=== PATIENT | female | born 1955 | race Hispanic/Latino ===

== ENCOUNTER 2021-02-05 14:02 | Emergency (ER) | payer OTHER ==
[~2021-02-05] VITALS: Ht 160 cm; Wt 83.9 kg
[2021-02-05 14:50] VITALS: BP 161/76
[2021-02-05 15:40] LABS: BASOPHILS % (AUTO) 0.4 % (0.0-5.0); EOSINOPHILS % (AUTO) 1.6 % (0.0-8.0); HEMATOCRIT 34.3 % (36-48); LYMPHOCYTES % (AUTO) 18.6 % (21.0-51.0); MEAN CORPUSCULAR HEMOGLOBIN 26.7 pg (27.0-33.0); MEAN CORPUSCULAR HGB CONC 30.9 g/dL (32.0-36.0); MEAN CORPUSCULAR VOLUME 86.4 fL (79-99); NEUTROPHILS % (AUTO) 74.1 % (40.0-77.0); PLATELET COUNT (AUTO) 301 K/uL (130-400); RED BLOOD CELL COUNT(AUTO) 3.97 MIL/uL (4.00-5.50); RED CELL DISTRIBUTION WIDTH 15.3 % (11.0-15.5); WHITE BLOOD COUNT (AUTO) 10.1 K/uL (4.8-10.8)
[2021-02-05 15:57] LABS: CREATININE 3.6 mg/dL (0.5-1.5); POTASSIUM 4.8 mmol/L (3.5-5.1)
[2021-02-05 15:58] LABS: B-TYPE NATRIURETIC PEPTIDE 366 pg/mL (0-100)
[2021-02-05 16:01] LABS: ALBUMIN 3.2 g/dL (3.5-5.0); BILIRUBIN,TOTAL 0.3 mg/dL (0.2-1.0)
[2021-02-05 16:25] LABS: APPEARANCE,URINE Clear (CLEAR); BILIRUBIN,URINE Negative (NEGATIVE); COLOR,URINE Yellow (YELLOW); GLUCOSE, URINE (UA) Negative (NEGATIVE); KETONES,URINE Negative (NEGATIVE); LEUKOCYTE ESTERASE ,URINE Negative (NEGATIVE); NITRATE,URINE Negative (NEGATIVE); OCCULT BLOOD,URINE Trace (NEGATIVE); PROTEIN,URINE 300 mg/dL (NEGATIVE); UROBILINOGEN,URINE 0.2 mg/dL (0.2-1.0)
[2021-02-05 16:32] LABS: RBC,URINE 0-1 /HPF (0-1); WBC,URINE 0-1 /HPF (0-1)
[2021-02-05 16:33] LABS: BACTERIA,URINE Rare /HPF (None Seen); SQUAMOUS EPITHELIAL CELL,UR Few /HPF (0-2)
[2021-02-06] MEDS ORDERED: CARV25TA PO (06:53)
[2021-02-06] MEDS ORDERED: NITR0.3T11 SL (06:53)
[2021-02-06] MEDS ORDERED: LOSARTAN PO (06:53)
[2021-02-06] MEDS ORDERED: LEVO50CA4 PO (06:53)
[2021-02-06] MEDS ORDERED: LEVO50TA11 PO (14:36)
[2021-02-06] MEDS ORDERED: LOSA25TA41 PO (14:36)
[2021-02-06] MEDS ORDERED: NITR0.4T50 SL (14:36)
[2021-02-06] MEDS ORDERED: FOLI0.8T2 PO (14:36)
[2021-02-06] MEDS ORDERED: ALBU1.252 IH (14:38)
== END 2021-02-05 17:16 | disposition left against medical advice (07) ==
LOC: EDH 14:02
DX: R07.89 Other chest pain (principal); R94.31 Abnormal electrocardiogram [ECG] [EKG]; I10 Essential (primary) hypertension; E78.00 Pure hypercholesterolemia, unspecified; Z98.890 Other specified postprocedural states; Z88.6 Allergy status to analgesic agent; Z88.8 Allergy status to other drugs, medicaments and biological substances
CPT/HCPCS: 36415; 71045; 80053; 81001; 82550; 83880; 84484; 85025; 93005

== ENCOUNTER 2021-02-06 05:56 | Inpatient (IN) | payer OTHER ==
[2021-02-06] VITALS (8 sets, daily range): BP systolic 134–210; BP diastolic 67–98
[~2021-02-06] VITALS: Ht 160 cm; Wt 81.6 kg
[2021-02-06 06:25] LABS: BASOPHILS % (AUTO) 0.5 % (0.0-5.0); EOSINOPHILS % (AUTO) 2.1 % (0.0-8.0); HEMATOCRIT 35.5 % (36-48); MEAN CORPUSCULAR HGB CONC 29.9 g/dL (32.0-36.0); MEAN CORPUSCULAR VOLUME 87.2 fL (79-99); MONOCYTES % (AUTO) 5.7 % (3.0-13.0); NEUTROPHILS % (AUTO) 70.3 % (40.0-77.0); PLATELET COUNT (AUTO) 284 K/uL (130-400); RED BLOOD CELL COUNT(AUTO) 4.07 MIL/uL (4.00-5.50); RED CELL DISTRIBUTION WIDTH 15.5 % (11.0-15.5); WHITE BLOOD COUNT (AUTO) 10.2 K/uL (4.8-10.8)
[2021-02-06 06:40] LABS: CREATININE 3.5 mg/dL (0.5-1.5); POTASSIUM 4.1 mmol/L (3.5-5.1)
[2021-02-06] MEDS ORDERED: LOSARTAN PO (06:53)
[2021-02-06] MEDS ORDERED: LEVO50CA4 PO (06:53)
[2021-02-06] MEDS ORDERED: CARV25TA PO (06:53)
[2021-02-06] MEDS ORDERED: NITR0.3T11 SL (06:53)
[2021-02-06] MEDS ORDERED: NITROGLYCERIN 1GM OINT 1 INCH/1GM TD SCH (07:00)
[2021-02-06 07:02] LABS: ALBUMIN 3.2 g/dL (3.5-5.0); B-TYPE NATRIURETIC PEPTIDE 277 pg/mL (0-100); BILIRUBIN,TOTAL 0.3 mg/dL (0.2-1.0); TOTAL PROTEIN, SERUM 8.2 g/dL (6.0-8.3)
[2021-02-06] MEDS ORDERED: NITROGLYCERIN 0.4 MG SL TAB SL PRN ×2 (07:30→11:30)
[2021-02-06] MEDS: METOPROLOL TARTRATE 25 MG TAB PO SCH ×2 (10:21→20:10)
[2021-02-06] MEDS ORDERED: ONDANSETRON 4MG INJ IV PRN (10:30)
[2021-02-06] MEDS: FAMOTIDINE 20MG VIAL IV SCH (11:39)
[2021-02-06] MEDS ORDERED: ASPIRIN 81MG CHEW TAB PO SCH (13:00)
[2021-02-06] MEDS: NITROGLYCERIN 1GM OINT 1 INCH/1GM TD SCH ×2 (13:02→20:10)
[2021-02-06] MEDS ORDERED: LABETALOL 20MG VIAL IV PRN (13:30)
[2021-02-06] MEDS ORDERED: FOLI0.8T2 PO (14:36)
[2021-02-06] MEDS ORDERED: NITR0.4T50 SL (14:36)
[2021-02-06] MEDS ORDERED: LEVO50TA11 PO (14:36)
[2021-02-06] MEDS ORDERED: LOSA25TA41 PO (14:36)
[2021-02-06] MEDS ORDERED: ALBU1.252 IH (14:38)
[2021-02-06] MEDS: FUROSEMIDE 20MG VIAL IV SCH (20:10)
[2021-02-06] MEDS ORDERED: METOPROLOL TARTRATE 25 MG TAB PO SCH (21:00)
[2021-02-06 22:24] LABS: APPEARANCE,URINE Clear (CLEAR); BILIRUBIN,URINE Negative (NEGATIVE); COLOR,URINE Yellow (YELLOW); GLUCOSE, URINE (UA) Negative (NEGATIVE); KETONES,URINE Negative (NEGATIVE); LEUKOCYTE ESTERASE ,URINE Negative (NEGATIVE); NITRATE,URINE Negative (NEGATIVE); OCCULT BLOOD,URINE Negative (NEGATIVE); PH,URINE 5.5 (5.0-8.0); PROTEIN,URINE POS 2+ mg/dL (NEGATIVE); UROBILINOGEN,URINE 0.2 mg/dL (0.2-1.0)
[2021-02-06 22:31] LABS: AMPHET/METH SCREEN,URINE NEGATIVE (NEGATIVE); BARBITURATE SCREEN, URINE NEGATIVE (NEGATIVE); BENZODIAZEPINES SCREEN,URINE NEGATIVE (NEGATIVE); CANNABINOID SCREEN,URINE NEGATIVE (NEGATIVE); COCAINE SCREEN,URINE NEGATIVE (NEGATIVE); OPIATE SCREEN,URINE NEGATIVE (NEGATIVE); PHENCYCLIDINE SCREEN,URINE NEGATIVE (NEGATIVE)
[2021-02-06 22:39] LABS: BACTERIA,URINE None Seen /HPF (None Seen); RBC,URINE None Seen /HPF (0-1); SQUAMOUS EPITHELIAL CELL,UR Few /HPF (0-2); WBC,URINE None Seen /HPF (0-1)
[2021-02-07] MEDS: NITROGLYCERIN 1GM OINT 1 INCH/1GM TD SCH ×3 (01:07→18:12)
[2021-02-07 01:57] VITALS: BP 178/82
[2021-02-07 02:10] VITALS: BP 151/72
[2021-02-07] MEDS: LEVOTHYROXINE 50 MCG TABLET PO SCH (06:01)
[2021-02-07 06:07] LABS: BASOPHILS % (AUTO) 0.4 % (0.0-5.0); EOSINOPHILS % (AUTO) 1.3 % (0.0-8.0); HEMATOCRIT 33.5 % (36-48); MEAN CORPUSCULAR HEMOGLOBIN 26.6 pg (27.0-33.0); MEAN CORPUSCULAR HGB CONC 31.3 g/dL (32.0-36.0); MONOCYTES % (AUTO) 3.2 % (3.0-13.0); NEUTROPHILS % (AUTO) 81.8 % (40.0-77.0); PLATELET COUNT (AUTO) 309 K/uL (130-400); RED BLOOD CELL COUNT(AUTO) 3.94 MIL/uL (4.00-5.50); RED CELL DISTRIBUTION WIDTH 15.3 % (11.0-15.5); WHITE BLOOD COUNT (AUTO) 10.6 K/uL (4.8-10.8)
[2021-02-07 06:32] LABS: % IRON SATURATION 11.3 % (22-44)
[2021-02-07 06:37] LABS: B-TYPE NATRIURETIC PEPTIDE 203 pg/mL (0-100)
[2021-02-07 06:41] LABS: ALBUMIN 3.2 g/dL (3.5-5.0); BILIRUBIN,TOTAL 0.3 mg/dL (0.2-1.0); CREATININE 3.3 mg/dL (0.5-1.5); MAGNESIUM 2.2 mg/dL (1.80-2.40); PHOSPHORUS 3.9 mg/dL (2.5-4.9); POTASSIUM 4.1 mmol/L (3.5-5.1); TOTAL PROTEIN, SERUM 7.8 g/dL (6.0-8.3); URIC ACID 7.5 mg/dL (2.6-7.2)
[2021-02-07 08:00] VITALS: BP 192/82
[2021-02-07] MEDS: NIFEDIPINE ER 30 MG TAB PO SCH (08:20)
[2021-02-07] MEDS: CARVEDILOL 25 MG TABLET PO SCH ×2 (08:20→20:44)
[2021-02-07] MEDS: ASPIRIN 81MG CHEW TAB PO SCH (08:20)
[2021-02-07] MEDS: LOSARTAN 25 MG TABLET PO SCH (08:20)
[2021-02-07] MEDS: Vitamin B Complex/Vit C/Folic Acid PO SCH (08:20)
[2021-02-07] MEDS: FAMOTIDINE 20MG VIAL IV SCH (08:21)
[2021-02-07] MEDS: FUROSEMIDE 20MG VIAL IV SCH ×2 (08:21→20:45)
[2021-02-07 11:56] VITALS: BP 111/58
[2021-02-07 16:00] VITALS: BP 138/71
[2021-02-07 20:00] VITALS: BP 139/73
[2021-02-08] VITALS: BP 105/45
[2021-02-08] MEDS: NITROGLYCERIN 1GM OINT 1 INCH/1GM TD SCH ×2 (03:38→11:19)
[2021-02-08 04:00] VITALS: BP 140/67
[2021-02-08 05:26] LABS: BASOPHILS % (AUTO) 0.4 % (0.0-5.0); EOSINOPHILS % (AUTO) 1.7 % (0.0-8.0); LYMPHOCYTES % (AUTO) 22.5 % (21.0-51.0); MEAN CORPUSCULAR HEMOGLOBIN 25.9 pg (27.0-33.0); MEAN CORPUSCULAR VOLUME 86.4 fL (79-99); MONOCYTES % (AUTO) 5.5 % (3.0-13.0); NEUTROPHILS % (AUTO) 69.5 % (40.0-77.0); PLATELET COUNT (AUTO) 295 K/uL (130-400); RED BLOOD CELL COUNT(AUTO) 3.82 MIL/uL (4.00-5.50); RED CELL DISTRIBUTION WIDTH 15.8 % (11.0-15.5); WHITE BLOOD COUNT (AUTO) 9.3 K/uL (4.8-10.8)
[2021-02-08] MEDS: LEVOTHYROXINE 50 MCG TABLET PO SCH (05:42)
[2021-02-08 05:44] LABS: ALBUMIN 3.1 g/dL (3.5-5.0); BILIRUBIN,TOTAL 0.4 mg/dL (0.2-1.0); CREATININE 3.9 mg/dL (0.5-1.5); TOTAL PROTEIN, SERUM 7.5 g/dL (6.0-8.3)
[2021-02-08] MEDS: FAMOTIDINE 20MG VIAL IV SCH (07:10)
[2021-02-08] MEDS: ASPIRIN 81MG CHEW TAB PO SCH (07:11)
[2021-02-08] MEDS: FUROSEMIDE 20MG VIAL IV SCH (07:11)
[2021-02-08] MEDS: LOSARTAN 25 MG TABLET PO SCH (07:11)
[2021-02-08] MEDS: NIFEDIPINE ER 30 MG TAB PO SCH (07:12)
[2021-02-08] MEDS: Vitamin B Complex/Vit C/Folic Acid PO SCH (07:12)
[2021-02-08] MEDS: CARVEDILOL 25 MG TABLET PO SCH (07:12)
[2021-02-08 08:00] VITALS: BP 146/53
[2021-02-08 12:00] VITALS: BP 137/73
[2021-02-08] MEDS ORDERED: ASPI-1005 PO (15:54)
[2021-02-08] MEDS ORDERED: NIFE-40 PO (15:54)
== END 2021-02-08 18:00 | disposition home or self-care (01) | DRG 305 ==
LOC: EDH 05:56 → EDHIP 10:06 → 4CH 02-07 02:08
PROVIDERS: ADMIT Internal Medicine; ATTEND Internal Medicine
DX: I16.0 Hypertensive urgency (principal); N17.9 Acute kidney failure, unspecified; I12.9 Hypertensive chronic kidney disease with stage 1 through stage 4 chronic kidney disease, or unspecified chronic kidney disease; E03.9 Hypothyroidism, unspecified; N18.9 Chronic kidney disease, unspecified; G43.909 Migraine, unspecified, not intractable, without status migrainosus; I25.10 Atherosclerotic heart disease of native coronary artery without angina pectoris; I73.9 Peripheral vascular disease, unspecified; E78.00 Pure hypercholesterolemia, unspecified; E78.5 Hyperlipidemia, unspecified; J45.909 Unspecified asthma, uncomplicated; Z20.822 Contact with and (suspected) exposure to COVID-19; I25.2 Old myocardial infarction; Z88.5 Allergy status to narcotic agent; Z88.8 Allergy status to other drugs, medicaments and biological substances; Z87.01 Personal history of pneumonia (recurrent); Z86.73 Personal history of transient ischemic attack (TIA), and cerebral infarction without residual deficits; Z86.16 Personal history of COVID-19; R07.9 Chest pain, unspecified
CPT/HCPCS: 36415; 71045; 76770; 78580; 80053; 80305; 81001; 82550; 82728; 83036; 83540; 83550; 83690; 83735; 83874; 83880; 84100; 84484; 84550; 85025; 85378; 86140; 93005; 93306; 93356; 93970; A9540; G0378; J1940; J3490